=== PATIENT | female | born 2000 | race Caucasian/White ===

== ENCOUNTER 2020-03-23 09:59 | Emergency (ER) | payer OTHER ==
[2020-03-23 10:05] VITALS: TEMP 98.1
--- NOTE | 2020-03-23 10:28 | ED ---
ENT HPI - General Chief complaint: ENT Stated complaint: 14 wks preg,weak,cough,congestion,vomiting Time Seen by Provider: 03/23/20 10:06 Source: patient Mode of arrival: ambulatory Limitations: no limitations - History of Present Illness Initial comments: Patient is a 20-year-old female, , 14 week presenting to the emergency department with chief complaint of URI symptoms, nausea and vomiting. Patient reports yesterday she started to develop sinus congestion and sore throat. Patient also reports a productive cough with yellow sputum production. She does report chills but denies any fevers at home. Patient states she also had nausea with 3 episodes of nonbilious and nonbloody vomiting. States she does have decreased appetite although is able to keep fluids down. She denies any vaginal bleeding, increased urgency, frequency or dysuria. Denies hematuria, hematochezia or melena. Denies any vaginal discharge or foul smell. 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 Patient states typically her blood pressure is on the lower end. - Related Data Home Medications Medication Instructions Recorded Confirmed Acetaminophen Tab [Tylenol] 325 mg PO Q8H PRN 03/23/20 03/23/20 Yje-Tqas-Synop Acid 1 cap PO DAILY 03/23/20 03/23/20 [-U Capsule (formulary)] Allergies Allergy/AdvReac Type Severity Reaction Status Date / Time No Known Allergies Allergy Verified 03/23/20 11:12 Review of Systems ROS Statement: Those systems with pertinent positive or pertinent negative responses have been documented in the HPI. ROS Other: All systems not noted in ROS Statement are negative. Past Medical History Past Medical History: No Reported History History of Any Multi-Drug Resistant Organisms: None Reported Past Surgical History: No Surgical Hx Reported Past Psychological History: No Psychological Hx Reported Smoking Status: Never smoker Past Alcohol Use History: None Reported Past Drug Use History: None Reported General Exam Limitations: no limitations General appearance: alert, in no apparent distress Head exam: Present: atraumatic, normocephalic, normal inspection Eye exam: Present: normal appearance, PERRL, EOMI Pupils: Present: normal accommodation ENT exam: Present: normal exam, normal oropharynx, mucous membranes moist, TM's normal bilaterally, normal external ear exam Neck exam: Present: normal inspection, full ROM. Absent: tenderness Respiratory exam: Present: normal lung sounds bilaterally. Absent: respiratory distress, wheezes, rales Cardiovascular Exam: Present: regular rate, normal rhythm, normal heart sounds GI/Abdominal exam: Present: soft. Absent: distended, tenderness, guarding, rebound Extremities exam: Present: normal inspection, full ROM, normal capillary refill, other (+2 ulnar and radial pulses bilateral.). Absent: tenderness, pedal edema, joint swelling, calf tenderness Back exam: Present: normal inspection, full ROM, tenderness, CVA tenderness (L) (Mild left CVA). Absent: CVA tenderness (R) Neurological exam: Present: alert, oriented X3, normal gait Psychiatric exam: Present: normal affect, normal mood Skin exam: Present: warm, dry, intact, normal color Course Vital Signs 03/23/20 10:02 Temperature 98.1 F Pulse Rate 118 H Respiratory 16 Rate Blood Pressure 107/77 O2 Sat by Pulse 99 Oximetry Medical Decision Making - Medical Decision Making Patient is a 20-year-old female, , 14 weeks , presenting to the emergency department with URI symptoms, nausea vomiting. Physical examination is unremarkable. 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 Chest x-ray is unremarkable. CBC CMP and UA are unremarkable. She does not have any vaginal bleeding. No UTI symptoms. Patient was given IV fluids, Reglan and Benadryl. On reevaluation, patient feels much better. Her OB is . She is already taking vitamins. Strict return parameters were thoroughly discussed the patient was understanding and agreeable. Case discussed with physician. - Lab Data Result diagrams: 03/23/20 10:41 03/23/20 10:41 Lab Results 03/23/20 03/23/20 03/23/20 Range/Units 10:41 10:41 11:03 WBC 8.3 (4.0-11.0) k/uL RBC 3.87 (3.80-5.40) m/uL Hgb 11.9 (11.4-16.0) gm/dL Hct 34.4 (34.0-46.0) % MCV 89.0 (80.0-100.0) fL MCH 30.7 (25.0-35.0) pg MCHC 34.5 (31.0-37.0) g/dL RDW 12.6 (11.5-15.5) % Plt Count 212 (150-450) k/uL Neutrophils % 82 % Lymphocytes % 11 % Monocytes % 5 % Eosinophils % 1 % Basophils % 0 % Neutrophils # 6.8 (1.3-7.7) k/uL Lymphocytes # 0.9 L (1.0-4.8) k/uL Monocytes # 0.4 (0-1.0) k/uL Eosinophils # 0.1 (0-0.7) k/uL Basophils # 0.0 (0-0.2) k/uL Sodium 134 L (137-145) mmol/L Potassium 3.8 (3.5-5.1) mmol/L Chloride 104 (98-107) mmol/L Carbon Dioxide 23 (22-30) mmol/L Anion Gap 7 mmol/L BUN 4 L (7-17) mg/dL Creatinine 0.46 L (0.52-1.04) mg/dL Est GFR (CKD-EPI)AfAm >90 (>60 ml/min/1.73 sqM) Est GFR (CKD-EPI)NonAf >90 (>60 ml/min/1.73 sqM) Glucose 85 (74-99) mg/dL Calcium 9.5 (8.4-10.2) mg/dL Total Bilirubin 0.6 (0.2-1.3) mg/dL AST 22 (14-36) U/L ALT 13 (4-34) U/L Alkaline Phosphatase 56 (38-126) U/L Total Protein 6.9 (6.3-8.2) g/dL Albumin 4.1 (3.5-5.0) g/dL Urine Color Yellow Urine Appearance Cloudy H (Clear) Urine pH 6.5 (5.0-8.0) Ur Specific [place] 1.012 (1.001-1.035) Urine Protein Negative (Negative) Urine Glucose (UA) Negative (Negative) Urine Ketones Negative (Negative) Urine Blood Trace H (Negative) Urine Nitrite Negative (Negative) Urine Bilirubin Negative (Negative) Urine Urobilinogen <2.0 (<2.0) mg/dL Ur Leukocyte Esterase Negative (Negative) Urine RBC 2 (0-5) /hpf Urine WBC 1 (0-5) /hpf Ur Squamous Epith Cells 7 H (0-4) /hpf Urine Bacteria Rare H (None) /hpf Urine Mucus Occasional H (None) /hpf Disposition Clinical Impression: Upper respiratory infection, Nausea & vomiting Disposition: HOME SELF-CARE Condition: Stable Instructions (If sedation given, give patient instructions): Upper Respiratory Infection (DC) Additional Instructions: Follow-up with your primary care physician. Drink plenty of fluids. Return to emergency department if symptoms worsen. Is patient prescribed a controlled substance at d/c from ED?: No Referrals: None,Stated [Primary Care Provider] - 1-2 days Time of Disposition: 11:53
[2020-03-23] MEDS ORDERED: METOCLOPRAMIDE 5 MG/ML 2 ML VIAL IVP STA (10:36)
[2020-03-23] MEDS ORDERED: diphenhydrAMINE 50 MG/ML 1 ML VIAL IVP STA (10:36)
[2020-03-23] MEDS ORDERED: SODIUM CHLORIDE 0.9% 1,000 ML IV STA (10:36)
[2020-03-23 11:08] LABS: Basophils % (A) 0 %; Eosinophils # (A) 0.1 k/uL (0-0.7); Eosinophils % (A) 1 %; HCT 34.4 % (34.0-46.0); HGB 11.9 gm/dL (11.4-16.0); Lymphocytes # (A) 0.9 k/uL (1.0-4.8); Lymphocytes % (A) 11 %; MCH 30.7 pg (25.0-35.0); MCHC 34.5 g/dL (31.0-37.0); Mean Platelet Volume 7.8; Monocytes # (A) 0.4 k/uL (0-1.0); Monocytes % (A) 5 %; Neutrophils # (A) 6.8 k/uL (1.3-7.7); Neutrophils % (A) 82 %; Platelet Count 212 k/uL (150-450); RBC 3.87 m/uL (3.80-5.40); RDW 12.6 % (11.5-15.5); WBC 8.3 k/uL (4.0-11.0)
[2020-03-23 11:17] LABS: ALT 13 U/L (4-34); AST 22 U/L (14-36); African American GFR (CKD) >90 (>60 ml/min/1.73 sqM); Albumin 4.1 g/dL (3.5-5.0); Alkaline Phosphatase 56 U/L (38-126); Anion Gap 7 mmol/L; Blood Urea Nitrogen 4 mg/dL (7-17); Calcium 9.5 mg/dL (8.4-10.2); Carbon Dioxide 23 mmol/L (22-30); Chloride 104 mmol/L (98-107); Glucose 85 mg/dL (74-99); Non-African American GFR(CKD) >90 (>60 ml/min/1.73 sqM); Potassium 3.8 mmol/L (3.5-5.1); Sodium 134 mmol/L (137-145); Total Bilirubin 0.6 mg/dL (0.2-1.3); Total Protein 6.9 g/dL (6.3-8.2)
[2020-03-23 11:28] LABS: Appearance,Urine Cloudy (Clear); Bacteria,Urine Rare /hpf; Bilirubin,Urine Negative (Negative); Blood,Urine Trace (Negative); Color,Urine Yellow; Glucose,Urine (UA) Negative (Negative); Ketones,Urine Negative (Negative); Leukocyte Esterase,Urine Negative (Negative); Mucus,Urine Occasional /hpf; Nitrite,Urine Negative (Negative); PH, Urine 6.5 (5.0-8.0); Protein,Urine Negative (Negative); RBC,Urine 2 /hpf (0-5); Specific Gravity,Urine 1.012 (1.001-1.035); Squamous Epithelial Cell,Urine 7 /hpf (0-4); Urobilinogen,Urine <2.0 mg/dL (<2.0); WBC,Urine 1 /hpf (0-5)
--- NOTE | 2020-03-23 11:28 | XR ---
EXAMINATION TYPE: XR chest 2V DATE OF EXAM: 03/23/2020 COMPARISON: NONE TECHNIQUE: PA and lateral views submitted. HISTORY: Cough FINDINGS: The lungs are clear and there is no pneumothorax, pleural effusion, or focal pneumonia. No overt fa ilure. Heart size normal. IMPRESSION: 1. No acute process.
[2020-03-23 11:43] VITALS: PULSE 98; RESP 18
[2020-03-23 11:46] VITALS: BP 107/64
== END 2020-03-23 12:26 | disposition home or self-care (01) ==
LOC: EC 09:59
DX: O99.512 Diseases of the respiratory system complicating pregnancy, second trimester (principal); J06.9 Acute upper respiratory infection, unspecified; O21.9 Vomiting of pregnancy, unspecified; Z3A.14 14 weeks gestation of pregnancy; Z79.899 Other long term (current) drug therapy
CPT/HCPCS: 96374; 96375; 96361; 99284; 36415; 80053; 85025; 81001; 71046; J1200; J2765

== ENCOUNTER 2020-07-05 13:27 | Outpatient (CLI) | payer OTHER ==
[2020-07-05 15:30] VITALS: BP 116/65; PULSE 99; RESP 16; TEMP 97.9
--- NOTE | 2020-08-03 15:29 | P.MSEPDOC ---
Presenting Problems - Arrival Data Date of Arrival on Unit: 07/05/20 Time of Arrival on Unit: 13:35 Mode of Transport: Ambulatory - Complaint OB-Reason for Admission/Chief Complaint: Decreased Movement Medical History - Information : 1 Para: 0 Term: 0 : 0 Abortions: Spontaneous or Elective: 0 Number of Living Children: 0 - Gestational Age Gestational Age by RYAN (wks/days): 29 Weeks and 0 Days Review of Systems - Review of Systems Constitutional: No problems Breast: No problems ENT: No problems Cardiovascular: No problems Respiratory: No problems Gastrointestinal: No problems Genitourinary: No problems Musculoskeletal: No problems Neurological: No problems Skin: No problems Vital Signs - Temperature Temperature: 97.9 F Temperature Source: Temporal Artery Scan - Pulse Pulse Oximetery Pulse Rate: 99 Pulse Assessment Method: Pulse Oximetry - Respirations Respiratory Rate: 16 O2 Sat by Pulse Oximetry: 99 - Blood Pressure Right Arm Sitting Blood Pressure: 116/65 Blood Pressure Mean: 82 Blood Pressure Source: Automatic Cuff Medical Screen Scoring (Pre) - Cervical Exam Dilation: Exam Deferred Effacement: Exam Deferred Membranes: Intact - Uterine Contractions Frequency: N/A Duration: N/A Intensity: N/A - Maternal Vital Signs Maternal Temperature: N/A Maternal Blood Pressure: N/A Signs of Preeclampsia: N/A Maternal Respirations: N/A - Maternal Trauma Maternal Trauma: N/A - Assessment - Baby A Baseline FHR: 130 Heart Rate - NICHD Category: Category I (Normal) = 0 NST: Reactive Position: N/A Station: N/A - Total Score - Baby A Total Score - Baby A: 0 - Total Score - Baby B Total Score - Baby B: 0 - Total Score - Baby C Total Score - Baby C: 0 - Level of Risk - Baby A Level of Risk - Baby A: Low (0-5) - Level of Risk - Baby B Level of Risk - Baby B: Low (0-5) - Level of Risk - Baby C Level of Risk - Baby C: Low (0-5) Physician Notification (Pre) - Physician Notified Physician Notified Date: 07/05/20 Physician Notified Time: 14:30 New Order Received: Yes Disposition - Disposition OB Disposition: Discharge to home, Written follow up instructions reviewed Discharge Date: 07/05/20 Discharge Time: 14:35 I agree with the RN Medical Screening Exam: Yes Physician's MSE Comment: Patient was not seen or examined by myself Case reviewed; plan agreed upon as documented in EMR&OBIX.: Yes Diagnosis: DECREASED MOVEMENTS, SECOND TRIMESTER, FETUS 1
== END 2020-07-05 14:35 | disposition home or self-care (01) ==
LOC: FBPOP 13:27
PROVIDERS: ATTEND Obstetrics & Gynecology Obstetrics
DX: O36.8121 Decreased fetal movements, second trimester, fetus 1 (principal); Z3A.29 29 weeks gestation of pregnancy
CPT/HCPCS: 59025; G0463; 99213

== ENCOUNTER 2020-08-29 09:25 | Emergency (ER) | payer OTHER ==
[2020-08-29 09:32] VITALS: RESP 18
[2020-08-29 11:20] VITALS: BP 118/74; PULSE 99; TEMP 98.1
--- NOTE | 2020-08-29 11:31 | ED ---
General Adult HPI - General Chief complaint: Upper Respiratory Infection Stated complaint: SOB/Vomiting/Nasal Congestion/37 wks preg Time Seen by Provider: 08/29/20 09:57 Source: patient, RN notes reviewed Mode of arrival: ambulatory Limitations: no limitations - History of Present Illness Initial comments: 20-year-old female presents emergency Department chief complaint of possible Covid. Patient states that she's had some cough congestion patient denies any known fevers chills. Patient states her 7 weeks states that she's had some nausea vomiting no abdominal complaints. Patient offers no other complaints. - Related Data Home Medications Medication Instructions Recorded Confirmed No Known Home Medications 08/29/20 08/29/20 Allergies Allergy/AdvReac Type Severity Reaction Status Date / Time No Known Allergies Allergy Verified 08/29/20 10:23 Review of Systems ROS Statement: Those systems with pertinent positive or pertinent negative responses have been documented in the HPI. ROS Other: All systems not noted in ROS Statement are negative. Past Medical History Past Medical History: No Reported History History of Any Multi-Drug Resistant Organisms: None Reported Past Surgical History: Adenoidectomy, Tonsillectomy Additional Past Surgical History / Comment(s): shoulder Past Psychological History: No Psychological Hx Reported Smoking Status: Never smoker Past Alcohol Use History: None Reported Past Drug Use History: None Reported General Exam General appearance: alert, in no apparent distress Head exam: Present: atraumatic, normocephalic, normal inspection Eye exam: Present: normal appearance, PERRL, EOMI. Absent: scleral icterus, conjunctival injection, periorbital swelling ENT exam: Present: normal exam, mucous membranes moist Neck exam: Present: normal inspection, full ROM. Absent: tenderness, meningismus, lymphadenopathy Respiratory exam: Present: normal lung sounds bilaterally. Absent: respiratory distress, wheezes, rales, rhonchi, stridor Cardiovascular Exam: Present: regular rate, normal rhythm, normal heart sounds. Absent: systolic murmur, diastolic murmur, rubs, gallop, clicks Course Vital Signs 08/29/20 08/29/20 09:29 11:19 Temperature 98.5 F 98.1 F Pulse Rate 108 H 99 Respiratory 18 18 Rate Blood Pressure 124/81 118/74 O2 Sat by Pulse 98 98 Oximetry Medical Decision Making - Medical Decision Making Patient has a negative covid test. Patient discharged in stable condition return parameters were discussed. - Lab Data Lab Results 08/29/20 Range/Units 10:29 Coronavirus (PCR) Not Detected (Not Detectd) Disposition Clinical Impression: Acute upper respiratory infection Disposition: HOME SELF-CARE Condition: Stable Instructions (If sedation given, give patient instructions): Upper Respiratory Infection (ED) Additional Instructions: Please return to the Emergency Department if symptoms worsen or any other concerns. Is patient prescribed a controlled substance at d/c from ED?: No Referrals: None,Stated [Primary Care Provider] - 1-2 days Time of Disposition: 11:31
== END 2020-08-29 11:39 | disposition home or self-care (01) ==
LOC: EC 09:25
DX: O99.511 Diseases of the respiratory system complicating pregnancy, first trimester (principal); J06.9 Acute upper respiratory infection, unspecified; Z20.822 Contact with and (suspected) exposure to COVID-19; Z3A.01 Less than 8 weeks gestation of pregnancy
CPT/HCPCS: 87635; 99283

== ENCOUNTER 2020-09-07 13:12 | Outpatient (CLI) | payer OTHER ==
[2020-09-07 14:22] VITALS: BP 130/73; PULSE 108; RESP 18; TEMP 98.1
--- NOTE | 2020-09-21 13:05 | P.MSEPDOC ---
Presenting Problems - Arrival Data Date of Arrival on Unit: 09/07/20 Time of Arrival on Unit: 13:12 Mode of Transport: Ambulatory - Complaint OB-Reason for Admission/Chief Complaint: Rule Out SROM Comment: pt presents to triage for possible SROM Medical History - Information : 1 Para: 0 Term: 0 : 0 Abortions: Spontaneous or Elective: 0 Number of Living Children: 0 - Gestational Age Gestational Age by RYAN (wks/days): 38 Weeks and 1 Days Review of Systems - Review of Systems Constitutional: No problems Breast: No problems ENT: No problems Cardiovascular: No problems Respiratory: No problems Gastrointestinal: No problems Genitourinary: No problems Musculoskeletal: No problems Neurological: No problems Skin: No problems Vital Signs - Temperature Temperature: 98.1 F Temperature Source: Temporal Artery Scan - Pulse Right Brachial Pulse Rate: 108 Pulse Assessment Method: Automatic Cuff - Respirations Respiratory Rate: 18 Oxygen Delivery Method: Room Air - Blood Pressure Right Arm Blood Pressure: 130/73 Blood Pressure Mean: 92 Blood Pressure Source: Automatic Cuff Medical Screen Scoring (Pre) - Cervical Exam Dilation: 1-3 cm = 1 Effacement: Exam Deferred Membranes: Intact - Uterine Contractions Frequency: N/A Duration: N/A Intensity: N/A - Maternal Vital Signs Maternal Temperature: N/A Maternal Blood Pressure: N/A Signs of Preeclampsia: N/A Maternal Respirations: N/A - Maternal Trauma Maternal Trauma: N/A - Assessment - Baby A Baseline FHR: 130 Heart Rate - NICHD Category: Category I (Normal) = 0 NST: Reactive Position: N/A Station: N/A - Total Score - Baby A Total Score - Baby A: 1 - Total Score - Baby B Total Score - Baby B: 1 - Total Score - Baby C Total Score - Baby C: 1 - Level of Risk - Baby A Level of Risk - Baby A: Low (0-5) - Level of Risk - Baby B Level of Risk - Baby B: Low (0-5) - Level of Risk - Baby C Level of Risk - Baby C: Low (0-5) Physician Notification (Pre) - Physician Notified Physician Notified Date: 09/07/20 Physician Notified Time: 14:00 New Order Received: Yes Disposition - Disposition OB Disposition: Triage, Discharge to home, Written follow up instructions reviewed Discharge Date: 09/07/20 Discharge Time: 14:10 I agree with the RN Medical Screening Exam: Yes Case reviewed; plan agreed upon as documented in EMR&OBIX.: Yes Diagnosis: RELATED CONDITIONS, UNSPECIFIED, THIRD TRIMESTER
== END 2020-09-07 14:10 | disposition home or self-care (01) ==
LOC: FBPOP 13:12
PROVIDERS: ATTEND Obstetrics & Gynecology Obstetrics
DX: O26.893 Other specified pregnancy related conditions, third trimester (principal); Z3A.38 38 weeks gestation of pregnancy
CPT/HCPCS: 59025; 84112; G0463; 99213

== ENCOUNTER 2020-09-10 09:58 | Inpatient (IN) | payer OTHER ==
[2020-09-10] MEDS: LACTATED RINGERS 1,000 ML IV SCH ×2 (12:20→15:54)
[2020-09-10] MEDS ORDERED: TERBUTALINE 1 MG/ML VIAL SQ PRN (12:25)
[2020-09-10] MEDS ORDERED: LIDOCAINE 0.5% (PF) 5 MG/ML (50 ML SDV) SQ PRN (12:25)
[2020-09-10] MEDS ORDERED: CARBOPROST TROMETHAMINE 250 MCG/ML 1 ML AMP IM PRN (12:25)
[2020-09-10] MEDS ORDERED: METHYLERGONOVINE 0.2 MG/ML 1 ML AMP IM PRN (12:25)
[2020-09-10] MEDS ORDERED: OXYTOCIN 10 UNIT/ML 1 ML VIAL IM PRN (12:25)
[2020-09-10] MEDS ORDERED: OXYTOCIN 30 UNITS/500 ML NS 30 UNIT in SALINE 1 500ML.BAG IV SCH ×2 (12:30→17:30)
[2020-09-10 12:44] LABS: Basophils % (A) 0 %; Eosinophils # (A) 0.2 k/uL (0-0.7); Eosinophils % (A) 1 %; HCT 35.1 % (34.0-46.0); HGB 12.2 gm/dL (11.4-16.0); Lymphocytes # (A) 1.9 k/uL (1.0-4.8); Lymphocytes % (A) 12 %; MCH 30.6 pg (25.0-35.0); MCHC 34.8 g/dL (31.0-37.0); MCV 88.2 fL (80.0-100.0); Mean Platelet Volume 9.3; Monocytes # (A) 0.5 k/uL (0-1.0); Monocytes % (A) 3 %; Neutrophils # (A) 12.9 k/uL (1.3-7.7); Neutrophils % (A) 82 %; Platelet Count 248 k/uL (150-450); RBC 3.98 m/uL (3.80-5.40); RDW 13.4 % (11.5-15.5); WBC 15.6 k/uL (4.0-11.0)
--- NOTE | 2020-09-10 13:06 | P.HPOB ---
History of Present Illness H&P Date: 09/10/20 Chief Complaint: IUP at 38 and 4, active labor This is a 20-year-old 1 para 0 at 38-4/7 weeks that presented to labor and delivery for complaints of regular painful contractions starting early this morning. Patient denies vaginal bleeding or loss of fluid. Patient has been receiving routine care which has been essentially uncomplicated, she was diagnosed with chlamydia and treated on 03/19. Negative test of cure on 06/28. Patient does note good movement today. On blood work she has a blood type of O-, rubella status is immune, RPR is nonreactive, hepatitis B surface antigen is negative, HIV is negative. Group beta strep culture was negative on 08/22. Review of Systems Constitutional: Denies chills, Denies fatigue, Denies fever Ears, nose, mouth and throat: Denies headache Cardiovascular: Reports leg edema Gastrointestinal: Reports diarrhea, Denies constipation, Denies nausea, Denies vomiting Genitourinary: Reports Past Medical History Past Medical History: No Reported History Additional Past Medical History / Comment(s): hypoglycemia History of Any Multi-Drug Resistant Organisms: None Reported Past Surgical History: Adenoidectomy, Tonsillectomy Additional Past Surgical History / Comment(s): shoulder Past Anesthesia/Blood Transfusion Reactions: No Reported Reaction Past Psychological History: ADD/ADHD Smoking Status: Former smoker Past Alcohol Use History: None Reported Past Drug Use History: None Reported - Past Family History Mother Family Medical History: Cancer, Hypertension Additional Family Medical History / Comment(s): breast CA Medications and Allergies Home Medications Medication Instructions Recorded Confirmed Type Pnv No.95/Ferrous Fum/Folic AC 1 tab PO DAILY 09/07/20 09/10/20 History [ Multivitamin Tablet] Allergies Allergy/AdvReac Type Severity Reaction Status Date / Time No Known Allergies Allergy Verified 09/10/20 10:10 Exam Osteopathic Statement: *. No significant issues noted on an osteopathic structural exam other than those noted in the History and Physical/Consult. Vital Signs Temp Pulse Resp BP 09/10/20 12:11 97.4 F L 99 17 129/82 Intake and Output 09/09/20 09/10/20 09/10/20 22:59 06:59 14:59 Other: Weight 79.379 kg Targeted physical exam is performed and state in general this a well-nourished well-developed female in no acute distress, breathing is nonlabored, heart has a regular rate and rhythm, abdomen is gravid and appropriate for gestational age, on cervical exam she is 4/80/-2 station bulging bag of water is appreciated, amniotomy is performed and clear fluid is obtained. Results Result Diagrams: 09/10/20 12:26 Abnormal Lab Results - Last 24 Hours (Table) 09/10/20 Range/Units 12:26 WBC 15.6 H (4.0-11.0) k/uL Neutrophils # 12.9 H (1.3-7.7) k/uL Assessment and Plan (1) Term Current Visit: Yes Status: Acute Code(s): Z34.90 - ENCNTR FOR SUPRVSN OF NORMAL , UNSP, UNSP TRIMESTER SNOMED Code(s): 78132424 (2) Active labor Current Visit: Yes Status: Acute Code(s): YQX9040 - SNOMED Code(s): 645342780 Plan: This 20-year-old 1 para 0 at 38-4/7 weeks is admitted to labor and delivery for active labor. Patient underwent amniotomy after admission and clear fluid was obtained. Options for analgesia are discussed with the patient including Stadol and epidural. Patient request epidural placement, when appropriate. Anticipate spontaneous vaginal delivery later today.
[2020-09-10] MEDS ORDERED: BUTORPHANOL 1 MG/ML 1 ML VIAL IV PRN (14:15)
[2020-09-10] MEDS ORDERED: SODIUM CHLORIDE 0.9% 100 ML BAG ONE (15:32)
[2020-09-10] MEDS ORDERED: fentaNYL (PF) 50 MCG/ML 5 ML AMP ONE (15:32)
[2020-09-10] MEDS ORDERED: ROPIVACAINE 5MG/ML 20ML VIAL ONE (15:32)
[2020-09-10] MEDS ORDERED: diphenhydrAMINE 50 MG CAP PO PRN (17:29)
[2020-09-10] MEDS ORDERED: diphenhydrAMINE 25 MG CAP PO PRN (17:29)
[2020-09-10] MEDS ORDERED: SIMETHICONE 80 MG CHEWABLE PO PRN (17:29)
[2020-09-10] MEDS ORDERED: LANOLIN CREAM 5 GM TUBE TOPICAL PRN (17:29)
[2020-09-10] MEDS ORDERED: ACETAMINOPHEN TAB 325 MG TAB PO PRN (17:29)
[2020-09-10] MEDS ORDERED: HYDROCORTISONE 2.5% RECTAL CREAM 30 GM TUBE RECTAL PRN (17:29)
[2020-09-10] MEDS ORDERED: diphenhydrAMINE 50 MG/ML 1 ML VIAL IVP PRN ×2 (17:29)
[2020-09-10] MEDS ORDERED: ZOLPIDEM 5 MG TAB PO PRN (17:29)
[2020-09-10] MEDS ORDERED: BENZOCAINE/MENTHOL SPRAY 1 GM/SPRAY AEROSOL TOPICAL PRN (17:29)
--- NOTE | 2020-09-10 17:29 | P.PROBDLV ---
Vaginal Delivery Note - . Vaginal Delivery Note: This is a 20-year-old 1 para 0 that presented to labor and delivery at 38-4/7 weeks with complaints of regular painful contractions. Patient was admitted to labor and delivery and amniotomy was performed. Uterus was noted to be 4 cm at that time. Patient progressed in labor eventually becoming uncomfortable and requesting epidural placement. Epidural was placed without difficulty by the anesthesia department. Patient progressed to complete began pushing and had a normal spontaneous vaginal delivery of a viable female infant at 1705, weight of 6 lbs. 6 oz. after a two-minute delayed the umbilical cord was doubly clamped and cut and was handed to the maternal abdomen. Spontaneous cry was noted at . The placenta was then delivered spontaneously intact with a three-vessel cord being noted. On inspection the patient's vaginal vault a right labial laceration was noted through the hymenal ring, this was repaired with 3-0 Rapide in the usual fashion. The bladder was drained for approximately 200 mL of clear yellow urine. The uterus was noted to be firm and below the umbilicus, estimated blood loss 200 mL. Patient and infant tolerated delivery well and are resting complete. All counts were noted to be correct 2 at the end of the delivery.
[2020-09-10] MEDS: IBUPROFEN 600 MG TAB PO SCH (18:01)
[2020-09-10] MEDS: SENNOSIDES-DOCUSATE SODIUM 1 EACH TAB PO SCH (20:45)
[2020-09-11] MEDS: IBUPROFEN 600 MG TAB PO SCH ×4 (01:11→18:25)
[2020-09-11] MEDS: SENNOSIDES-DOCUSATE SODIUM 1 EACH TAB PO SCH (07:32)
--- NOTE | 2020-09-11 08:42 | P.DS ---
Providers Date of admission: 09/10/20 12:05 Expected date of discharge: 09/11/20 Attending physician: Светлана Gore Primary care physician: Stated None - Discharge Diagnosis(es) (1) Term Current Visit: Yes Status: Acute (2) Active labor Current Visit: Yes Status: Acute (3) Status post vaginal delivery Current Visit: Yes Status: Acute Hospital Course: This is a 21-year-old 1 now para 1 status post normal spontaneous vaginal delivery. Patient presented yesterday with complaints of regular contractions. Patient was noted to make cervical change and was admitted to labor and delivery. Patient underwent amniotomy clear fluid was obtained. Patient became uncomfortable and requested epidural placement. Epidural was placed without difficulty by the anesthesia department. Patient progressed to complete began pushing and had a normal spontaneous vaginal delivery of a viable female infant at 1705, weight of 6 lbs. 6 oz. and Apgars of 9 and 10 at one and 5 minutes respectively. Patient did sustain a labial laceration during delivery this was repaired in the usual fashion with 3-0 Rapide. Patient has done well . On this day #1 she is ambulating and voiding without difficulty. She is tolerating a regular diet without nausea or vomiting. She states her pain is well-controlled and she would like discharge home at 24 hours if possible. Patient Condition at Discharge: Good Plan - Discharge Summary New Discharge Prescriptions: No Action Pnv No.95/Ferrous Fum/Folic AC [ Multivitamin Tablet] 1 tab PO DAILY Discharge Medication List Pnv No.95/Ferrous Fum/Folic AC [ Multivitamin Tablet] 1 tab PO DAILY 09/07/20 [History] Follow up Appointment(s)/Referral(s): Светлана Gore DO [Doctor of Osteopathic Medicine] - 4 Weeks Patient Instructions/Handouts: Vaginal Delivery (GEN), Vaginal Delivery (DC) Discharge Disposition: HOME SELF-CARE
[2020-09-11] MEDS ORDERED: PRENATAL VIT-IRON-FOLIC ACID 1 EACH CAP PO SCH (09:00)
[2020-09-11 11:32] VITALS: RESP 16
[2020-09-11 16:51] VITALS: BP 123/75; PULSE 85; TEMP 97.9
== END 2020-09-11 18:10 | disposition home or self-care (01) | DRG 807 ==
LOC: FBPOP 09:58 → 4FBP 12:05
PROVIDERS: ADMIT Obstetrics & Gynecology Obstetrics; ATTEND Obstetrics & Gynecology Obstetrics
PROC: 0HQ9XZZ Repair Perineum Skin, External Approach (ICD-10-PCS; principal; 2020-09-10)
PROC: 10907ZC Drainage of Amniotic Fluid, Therapeutic from Products of Conception, Via Natural or Artificial Opening (ICD-10-PCS; principal; 2020-09-10)
PROC: 00HU33Z Insertion of Infusion Device into Spinal Canal, Percutaneous Approach (ICD-10-PCS; principal; 2020-09-10)
PROC: 3E0R3NZ Introduction of Analgesics, Hypnotics, Sedatives into Spinal Canal, Percutaneous Approach (ICD-10-PCS; principal; 2020-09-10)
PROC: 10E0XZZ Delivery of Products of Conception, External Approach (ICD-10-PCS; principal; 2020-09-10)
DX: O70.0 First degree perineal laceration during delivery (principal); Z37.0 Single live birth; Z3A.38 38 weeks gestation of pregnancy; O99.344 Other mental disorders complicating childbirth; F90.9 Attention-deficit hyperactivity disorder, unspecified type; Z80.3 Family history of malignant neoplasm of breast; Z82.49 Family history of ischemic heart disease and other diseases of the circulatory system; Z87.891 Personal history of nicotine dependence; Z90.89 Acquired absence of other organs
CPT/HCPCS: 59025; 85025; 86850; 86900; 86901; 99213

== ENCOUNTER → 2022-10-29 | Outpatient (CLI) | payer OTHER ==
--- NOTE | 2022-10-29 15:33 | US ---
EXAMINATION TYPE: Transabdominal DATE OF EXAM: 10/29/2022 3:10 PM COMPARISON: NONE CLINICAL INDICATION: Female, 22 years old with history of Z36.89 ENCOUNTER FOR OTHER SPECIFIED ANTENA KWAKU SCR; EXAM PERFORMED: Transabdominal (TA) EXAM MEASUREMENTS: GESTATIONAL AGE / DATING Dates by LMP: (12 weeks/1 days) EDC: 05/12/2023 Dates by Current Scan for: (12 weeks/6 days) EDC: 05/17/2023 MATERNAL ANATOMY Uterus: 9.7x8.3x10cm Right Ovary: 3.7x2.8x2.6cm Left Ovary: 2.6x2.6x1.9cm Post CDS / Adnexa: negative Presence of free fluid: no Presence of corpus luteal cyst: no, small cystic area on rt ovary Presence of subchorionic bleed: no GESTATION / SURVEY CRL: 6.44cm (12 weeks/6 days) Yolk Sac (normal less than 6mm): 5.6mm Heart Rate: 155 bpm Rhythm: Normal IUP: Viable IUP Date of LMP: 08/05/2022 Beta HcG (if available): Not available at this time IMPRESSION: Single live intrauterine gestation ultrasound age 12 weeks 6 days.
== END | disposition home or self-care (01) ==
LOC: RADUSWWP 14:09
PROVIDERS: ATTEND Obstetrics & Gynecology
DX: Z36.89 Encounter for other specified antenatal screening (principal); Z3A.12 12 weeks gestation of pregnancy
CPT/HCPCS: 76801

== ENCOUNTER → 2022-12-17 | Outpatient (CLI) | payer OTHER ==
--- NOTE | 2022-12-17 14:17 | US ---
EXAMINATION TYPE: US OB anatomy transabd DATE OF EXAM: 12/17/2022 COMPARISON: 10/29/2022 CLINICAL INDICATION: Female, 22 years old with history of O36.62X0 MATERNAL CARE FOR EXCESS EFRAIN WT, SE; anatomy TECHNIQUE: Transabdominal (TA) EXAM MEASUREMENTS: GESTATIONAL AGE / DATING Dates by LMP: 05/12/2023 (19 weeks/1 days) EDC: 05/12/2023 Dates by First Scan: ( weeks/ days) EDC: Dates by Current Scan: (19 weeks/4 days) EDC: 05/09/2023 Beta HCG (if available): Not available at this time SURVEY IUP: Single PLACENTA: Posterior PREVIA: Low Lying MIKAEL: 10.7 cm Normal CERVICAL LENGTH (transabdominal: norm > 3.0cm): 4.8 cm BIOMETRY PRESENTATION: Breech LIE: Longitudinal BPD: 4.6 cm 20 weeks / 0 days HC: 16.6 cm 19 weeks / 2 days AC: 14.1 cm 19 weeks / 4 days FL: 3.0 cm 19 weeks / 2 days ESTIMATED WEIGHT IN GRAMS: 288 grams ESTIMATED WEIGHT IN LBS/OZ: 0 lbs. 10 oz. WEIGHT PERCENTAGE BASED ON ESTABLISHED DATES: 59% HC/AC: 1.17 Normal FL/AC: 21% Normal HEART RATE: 160 bpm RHYTHM: Normal ANATOMY SEEN (within normal limits): * Lateral Vent (< 1 cm) 0.63cm * Cisterna Magna (< 1.1 cm) 0.31cm * Nuchal Fold (< 0.6 cm) 0.24cm * Cerebellum (varies with age) 1.87 Choroid Plexus (bilateral) Midline Falx Cavus Septi Pellucidi Four Chamber Heart Outflow tracts: LVOT/RVOT Stomach Situs Nose / Lips Diaphragm Bladder Cord Insert Three Vessel Cord Arms (bilateral) Legs (bilateral) ANATOMY SEEN (does not appear within normal limits): ANATOMY NOT SEEN: Kidneys (bilateral) Longitudinal Spine Transverse Spine Unable to obtain some views due to position. Pt. Scheduled for call back imaging IMPRESSION: Anatomy scan with single live intrauterine gestation in breech presentation with ultrasound age 19 we eks 4 days. Patient to return for additional and anatomy scans.
== END | disposition home or self-care (01) ==
LOC: RADUSWWP 12:18
PROVIDERS: ATTEND Obstetrics & Gynecology
DX: O36.62X0 Maternal care for excessive fetal growth, second trimester, not applicable or unspecified (principal); Z3A.19 19 weeks gestation of pregnancy
CPT/HCPCS: 76811

== ENCOUNTER → 2023-01-14 | Outpatient (CLI) | payer OTHER ==
--- NOTE | 2023-01-14 16:38 | US ---
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 Normal limited anatomy as described above.
== END | disposition home or self-care (01) ==
LOC: RADUSWWP 15:38
PROVIDERS: ATTEND Obstetrics & Gynecology
DX: Z53.9 Procedure and treatment not carried out, unspecified reason (principal)

== ENCOUNTER → 2023-02-17 | Outpatient (CLI) | payer OTHER ==
--- NOTE | 2023-02-17 21:10 | US ---
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 no bleeding TECHNIQUE: OBTA GESTATIONAL AGE / DATING Physician Established: (28 weeks/0 days) EDC: 05/12/2023 Dates by LMP: (28 weeks/0 days) EDC: 05/12/2023 Dates by First Scan: (28 weeks/3 days) EDC: 05/09/2023 Dates by Current Scan: (30 weeks/0 days) (1 weeks 4 days more growth than expected from the 12/17/2022 ultrasound) EDC: 04/28/2023 SURVEY IUP: Single PLACENTA: Posterior-fundal PREVIA: No Previa MIKAEL: 12.8 cm Normal CERVICAL LENGTH (transabdominal: norm > 3.0cm): 3.7 cm BIOMETRY PRESENTATION: Vertex LIE: Longitudinal BPD: 7.5 cm 30 weeks / 1 days HC: 27.9 cm 30 weeks / 5 days AC: 24.6 cm 28 weeks / 6 days FL: 5.7 cm 30 weeks / 0 days ESTIMATED WEIGHT IN GRAMS: 1391 grams ESTIMATED WEIGHT IN LBS/OZ: 3 lbs. 0 oz. WEIGHT PERCENTAGE BASED ON ESTABLISHED DATES: 88% versus 59th percentile on the 12/17/2022 scan HC/AC: 1.1 Normal FL/AC: 23 Normal HEART RATE: 153 bpm RHYTHM: Normal IMPRESSION: 1. Single live intrauterine with estimated gestational age of 28 weeks 0 days by LMP. [facility] ultrasound biometry is becoming larger now 88th percentile versus 59th percentile, previously. Myra suring at 30 weeks 0 days by current ultrasound biometry. 2. Consider follow-up to exclude early LGA. 3. Posterior fundal placenta without evidence for placenta previa.
== END | disposition home or self-care (01) ==
LOC: RADUSWWP 12:21
PROVIDERS: ATTEND Obstetrics & Gynecology
DX: O43.103 Malformation of placenta, unspecified, third trimester (principal); Z3A.28 28 weeks gestation of pregnancy
CPT/HCPCS: 76805

== ENCOUNTER → 2023-04-14 | Outpatient (CLI) | payer OTHER ==
--- NOTE | 2023-04-14 14:03 | US ---
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 TECHNIQUE: Transabdominal (TA) GESTATIONAL AGE / DATING Physician Established: (36 weeks/0 days) EDC: 05/12/2023 Dates by Current Scan: (36 weeks/4 days) EDC: 05/08/2023 Beta HCG (if available): Not available at this time SURVEY IUP: Single PLACENTA: Posterior PREVIA: No Previa MIKAEL: 21.2 cm Polyhydramnios CERVICAL LENGTH (transabdominal: norm > 3.0cm): 2.9 cm BIOMETRY PRESENTATION: Vertex BPD: 8.8 cm 35 weeks / 5 days HC: 33.0 cm 37 weeks / 5 days AC: 32.7 cm 36 weeks / 5 days FL: 7.0 cm 35 weeks / 6 days ESTIMATED WEIGHT IN GRAMS: 2933 grams ESTIMATED WEIGHT IN LBS/OZ: 6 lbs. 7 oz. WEIGHT PERCENTAGE BASED ON ESTABLISHED DATES: 63% HC/AC: 1.0 Normal FL/AC: 21% Normal HEART RATE: 133 bpm RHYTHM: Normal Live IUP measuring 36 weeks 4 days. Polyhydramnios. IMPRESSION: 1. Single live intrauterine gestation with estimated gestational age of 36 weeks 4 days and estimated due date of 05/08/2023. 2. Polyhydramnios. 3. Slightly decreased cervical length measuring 2.9 cm.
== END | disposition home or self-care (01) ==
LOC: RADUSWWP 12:25
PROVIDERS: ATTEND Obstetrics & Gynecology
DX: O43.109 Malformation of placenta, unspecified, unspecified trimester (principal); O40.3XX0 Polyhydramnios, third trimester, not applicable or unspecified; Z3A.36 36 weeks gestation of pregnancy
CPT/HCPCS: 76805

== ENCOUNTER 2023-04-16 07:18 | Inpatient (IN) | payer OTHER ==
[2023-04-16] MEDS: LACTATED RINGERS 1,000 ML IV SCH ×4 (09:20→23:58)
[2023-04-16] MEDS ORDERED: METHYLERGONOVINE 0.2 MG/ML 1 ML AMP IM PRN (10:27)
[2023-04-16] MEDS ORDERED: miSOPROStoL 200 MCG TAB PO PRN (10:27)
[2023-04-16] MEDS ORDERED: CARBOPROST TROMETHAMINE 250 MCG/ML 1 ML AMP IM PRN (10:27)
[2023-04-16] MEDS ORDERED: OXYTOCIN 10 UNIT/ML 1 ML VIAL IM PRN (10:27)
[2023-04-16] MEDS ORDERED: LIDOCAINE 0.5% (PF) 5 MG/ML (50 ML SDV) SQ PRN (10:27)
[2023-04-16] MEDS ORDERED: TERBUTALINE 1 MG/ML VIAL SQ PRN (10:27)
[2023-04-16] MEDS ORDERED: TRANEXAMIC 1,000 MG/100ML-NACL 1,000 MG in EMPTY BAG 1 BAG IV PRN (10:27)
[2023-04-16] MEDS ORDERED: SODIUM CHLORIDE 0.9% 250 ML BAG ONE (10:28)
[2023-04-16] MEDS ORDERED: ROPIVACAINE 5 MG/ML 30 ML VIAL ONE (10:28)
[2023-04-16] MEDS ORDERED: fentaNYL (PF) 50 MCG/ML 5 ML AMP ONE (10:28)
[2023-04-16] MEDS ORDERED: OXYTOCIN 30 UNITS/500 ML NS 30 UNIT in SALINE 1 500ML.BAG IV SCH ×2 (10:30→22:30)
[2023-04-16 10:38] LABS: Basophils % (A) 0 %; Eosinophils # (A) 0.1 k/uL (0-0.7); Eosinophils % (A) 1 %; HCT 30.8 % (34.0-46.0); HGB 10.5 gm/dL (11.4-16.0); Lymphocytes # (A) 1.6 k/uL (1.0-4.8); Lymphocytes % (A) 14 %; MCH 30.2 pg (25.0-35.0); Mean Platelet Volume 8.8; Monocytes # (A) 0.4 k/uL (0-1.0); Monocytes % (A) 3 %; Neutrophils % (A) 80 %; Platelet Count 266 k/uL (150-450); RBC 3.46 m/uL (3.80-5.40); RDW 13.9 % (11.5-15.5); WBC 11.2 k/uL (3.8-10.6)
--- NOTE | 2023-04-16 11:04 | P.HPOB ---
History of Present Illness H&P Date: 04/16/23 Chief Complaint: Contractions, questionable rupture membranes This is a 23-year-old female 2 para 1 with an estimated date of confinement of 05/12/2023, estimated gestational age of 36-3/7 weeks, who presents to labor and delivery with complaints of questionable rupture membranes prior to coming in. She urinated but then felt like she was still urinating after. She did not notice any large gush of fluid. Contractions have become stronger since she has arrived to triage. course has been complicated by some tachycardia early on in the . She was originally referred to cardiology but then her PCP held off on referral because her symptoms improved. She was also started on Zoloft due to anxiety symptoms. labs: Hemoglobin-12.7 Blood [id number] Rubella-immune RPR-nonreactive HIV-nonreactive Hepatitis C antibody-negative Random glucose-83 Hepatitis B surface antigen-negative Ultrasound showed a low-lying placenta at 19 weeks One hour Glucola-104 RhoGAM was given at 32 weeks Group B streptococcus-negative Obstetrical history: . History of 1 vaginal delivery at 38 weeks without complication. Gynecologic history: No history of sexual transmitted diseases Social history: She is . 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 Review of Systems Constitutional: Denies chills, Denies fever Eyes: denies blurred vision, denies pain Ears, nose, mouth and throat: Denies headache, Denies sore throat Cardiovascular: Denies chest pain, Denies shortness of breath Respiratory: Denies cough Gastrointestinal: Reports abdominal pain (Contractions) Genitourinary: Reports pelvic pain, Reports Musculoskeletal: Denies myalgias Integumentary: Denies pruritus, Denies rash Neurological: Denies numbness, Denies weakness Psychiatric: Reports anxiety, Reports depression Past Medical History Past Medical History: No Reported History Additional Past Medical History / Comment(s): hypoglycemia History of Any Multi-Drug Resistant Organisms: None Reported Past Surgical History: Adenoidectomy, Tonsillectomy Additional Past Surgical History / Comment(s): shoulder Past Anesthesia/Blood Transfusion Reactions: No Reported Reaction Past Psychological History: ADD/ADHD Smoking Status: Former smoker Past Alcohol Use History: None Reported Past Drug Use History: None Reported - Past Family History Mother Family Medical History: Cancer, Hypertension Additional Family Medical History / Comment(s): breast CA Medications and Allergies Home Medications Medication Instructions Recorded Confirmed Type Pnv No.95/Ferrous Fum/Folic AC 1 tab PO DAILY 09/07/20 09/10/20 History [ Multivitamin Tablet] Allergies Allergy/AdvReac Type Severity Reaction Status Date / Time No Known Allergies Allergy Verified 04/16/23 08:01 Exam Osteopathic Statement: *. No significant issues noted on an osteopathic structural exam other than those noted in the History and Physical/Consult. Vital Signs Temp Pulse Resp BP Pulse Ox 04/16/23 10:44 98.3 F 125 H 16 130/70 04/16/23 10:37 98.3 F 125 H 16 130/70 99 Intake and Output 04/15/23 04/16/23 04/16/23 22:59 06:59 14:59 Other: Weight 75.296 kg HEENT: Within normal limits Heart: Regular rate and rhythm Lungs: Clear to auscultation bilaterally Abdomen: Cervix: Amnisure was initially negative. She did make cervical change in triage from 4-5 over a couple hour period time with regular contractions every 2 minutes. Cervix is currently 5 cm/60%/-2 station with bulging bag. Artificial rupture membranes is carried out with clear fluid noted. heart tones: 150s with good variability and accelerations, occasional variable deceleration Contractions: Every 2-3 minutes Extremities: Negative Homans. Results Result Diagrams: 04/16/23 09:25 Abnormal Lab Results - Last 24 Hours (Table) 04/16/23 Range/Units 09:25 WBC 11.2 H (3.8-10.6) k/uL RBC 3.46 L (3.80-5.40) m/uL Hgb 10.5 L (11.4-16.0) gm/dL Hct 30.8 L (34.0-46.0) % Neutrophils # 9.0 H (1.3-7.7) k/uL Assessment and Plan (1) 36 weeks gestation of Current Visit: Yes Status: Acute Code(s): Z3A.36 - 36 WEEKS GESTATION OF SNOMED Code(s): 75496991 (2) labor in third trimester with delivery Current Visit: Yes Status: Acute Code(s): O60.14X0 - LABOR THIRD TRI W DELIVERY THIRD TRI, UNSP SNOMED Code(s): 10632482600856791 Plan: Admission for early active labor. Epidural anesthesia if desired. Expectant management. Patient is aware the baby may need to go to nursery for further observation after delivery.
[2023-04-16 14:48] LABS: Glucose,Whole Blood 87 mg/dL (70-110)
[2023-04-16] MEDS ORDERED: diphenhydrAMINE 50 MG/ML 1 ML VIAL IVP PRN ×2 (22:25)
[2023-04-16] MEDS ORDERED: ZOLPIDEM 5 MG TAB PO PRN (22:25)
[2023-04-16] MEDS ORDERED: LANOLIN CREAM 5 GM TUBE TOPICAL PRN (22:25)
[2023-04-16] MEDS ORDERED: Rhogam IMMUNE GLOBULIN 1,500 UNIT/1 ML IM ONE (22:25)
[2023-04-16] MEDS ORDERED: SIMETHICONE 80 MG CHEWABLE PO PRN (22:25)
[2023-04-16] MEDS ORDERED: BENZOCAINE/MENTHOL SPRAY 1 GM/SPRAY AEROSOL TOPICAL PRN (22:25)
[2023-04-16] MEDS ORDERED: diphenhydrAMINE 50 MG CAP PO PRN (22:25)
[2023-04-16] MEDS ORDERED: HYDROCORTISONE 2.5% RECTAL CREAM 30 GM TUBE RECTAL PRN (22:25)
[2023-04-16] MEDS ORDERED: diphenhydrAMINE 25 MG CAP PO PRN (22:25)
--- NOTE | 2023-04-16 22:28 | P.PROBDLV ---
Vaginal Delivery Note - . Vaginal Delivery Note: 23-year-old presents at 36 weeks and 3 days complaining of contractions. She thought her water had broken as well but amnio sure was negative. She was lucio every few minutes. heart tones 140 with moderate variability and reactive. Her cervix changed from 4 cm to 5-1/2 cm dilated, 70% effaced, and -2 station. Amniotomy was performed at 10:54 AM and clear fluid was noted. The patient progressed very slowly throughout the day and was completely dilated at 2155. She pushed, delivered a viable male over intact perineum under epidural anesthesia at 2211. Head delivered OA, anterior shoulder delivered gentle downward guidance followed by posterior shoulder and rest of body. Nose and mouth bulb suctioned, cord clamped and cut, placed on mother's abdomen. Apgars 8, 9, weight 6 pounds 14.6 ounces. Placenta delivered spontane ously, intact with three-vessel cord at 2213. Vagina, cervix, and perineum were inspected. First-degree midline laceration was repaired with 3-0 Vicryl. Estimated blood loss 100 mL. Mother and baby in stable condition.
[2023-04-16] MEDS: IBUPROFEN 600 MG TAB PO PRN (23:55)
[2023-04-17] MEDS: ACETAMINOPHEN TAB 325 MG TAB PO PRN ×3 (02:22→20:26)
[2023-04-17] MEDS: LACTATED RINGERS 1,000 ML IV SCH ×5 (03:46→14:05)
[2023-04-17] MEDS: IBUPROFEN 600 MG TAB PO PRN ×2 (06:00→15:16)
[2023-04-17 06:27] LABS: Basophils % (A) 0 %; Eosinophils # (A) 0.1 k/uL (0-0.7); Eosinophils % (A) 1 %; HCT 28.9 % (34.0-46.0); HGB 9.7 gm/dL (11.4-16.0); Lymphocytes # (A) 1.6 k/uL (1.0-4.8); Lymphocytes % (A) 12 %; MCHC 33.6 g/dL (31.0-37.0); MCV 89.3 fL (80.0-100.0); Mean Platelet Volume 8.5; Monocytes # (A) 0.7 k/uL (0-1.0); Monocytes % (A) 5 %; Neutrophils # (A) 11.1 k/uL (1.3-7.7); Neutrophils % (A) 81 %; Platelet Count 251 k/uL (150-450); RBC 3.23 m/uL (3.80-5.40); RDW 13.9 % (11.5-15.5); WBC 13.8 k/uL (3.8-10.6)
--- NOTE | 2023-04-17 07:50 | P.PNOBGVD ---
Subjective - Subjective Principal diagnosis: Status post vaginal delivery day #1 Interval history: Patient is doing well. She is working at breast-feeding. She is currently pumping and feeding with a syringe. Lochia is decreasing. Her pain is fairly well controlled. She is requesting some compression stockings for comfort. Patient reports: Reports appetite normal, Reports voiding normally, Reports pain well controlled, Reports ambulating normally Meredith: doing well Objective - Latest Vital Signs Latest vital signs: Vital Signs Temp Pulse Resp BP Pulse Ox 04/17/23 04:00 98.2 F 104 H 16 107/75 04/17/23 00:20 98.6 F 102 H 15 114/67 96 04/16/23 23:50 98.6 F 97 16 96 04/16/23 23:20 98.6 F 100 15 114/72 04/16/23 23:05 98.6 F 90 15 115/74 97 04/16/23 22:50 100 16 119/70 97 04/16/23 22:35 98.6 F 91 16 127/69 97 04/16/23 22:20 98.3 F 107 H 16 126/68 04/16/23 10:44 98.3 F 125 H 16 130/70 04/16/23 10:37 98.3 F 125 H 16 130/70 99 Intake and Output 04/16/23 04/17/23 04/17/23 22:59 06:59 14:59 Intake Total 8.1 Output Total 100 1245 Balance -91.9 -1245 Intake: Intake, IV Titration 8.1 Amount Oxytocin 30 Units/500 ml 8.1 Ns 30 unit In Saline 1 500ml.bag @ Per Protocol IV .Q0M [facility] Rx#:[id number] Output: Urine 900 Estimated Blood Loss 100 Output, Quantitative 345 Blood Loss Other: # Voids 2 - Exam Extremities: Present: normal. Absent: tenderness Abdomen: Present: normal appearance, soft. Absent: distention, tenderness Uterus: Present: normal, firm. Absent: tenderness - Labs Labs: Abnormal Lab Results - Last 24 Hours (Table) 04/16/23 04/17/23 Range/Units 09:25 06:04 WBC 11.2 H 13.8 H (3.8-10.6) k/uL RBC 3.46 L 3.23 L (3.80-5.40) m/uL Hgb 10.5 L 9.7 L (11.4-16.0) gm/dL Hct 30.8 L 28.9 L (34.0-46.0) % Neutrophils # 9.0 H 11.1 H (1.3-7.7) k/uL Assessment and Plan Assessment: Status post vaginal delivery day #1 (1) 36 weeks gestation of Current Visit: Yes Status: Acute Code(s): Z3A.36 - 36 WEEKS GESTATION OF SNOMED Code(s): 68620431 (2) labor in third trimester with delivery Current Visit: Yes Status: Acute Code(s): O60.14X0 - LABOR THIRD TRI W DELIVERY THIRD TRI, UNSP SNOMED Code(s): 99877818337810882 Plan: Continue with care. Anticipate discharge home tomorrow.
--- NOTE | 2023-04-17 07:56 | P.MSEPDOC ---
Presenting Problems - Arrival Data Date of Arrival on Unit: 04/16/23 Time of Arrival on Unit: 07:22 Mode of Transport: Ambulatory - Complaint OB-Reason for Admission/Chief Complaint: Rule Out PROM, Pain Comment: contx Medical History - Information : 2 Para: 1 Term: 1 : 0 Abortions: Spontaneous or Elective: 0 Number of Living Children: 1 - Gestational Age Gestational Age by RYAN (wks/days): 36 Weeks and 2 Days Review of Systems - Review of Systems Constitutional: No problems Breast: No problems ENT: No problems Cardiovascular: No problems Respiratory: No problems Gastrointestinal: No problems Genitourinary: No problems Musculoskeletal: No problems Neurological: No problems Skin: No problems Vital Signs - Temperature Temperature: 98.2 F Temperature Source: Oral - Pulse Right Sitting Brachial Pulse Rate: 104 Pulse Assessment Method: Automatic Cuff - Respirations Respiratory Rate: 16 Oxygen Delivery Method: Room Air - Blood Pressure Right Arm Sitting Blood Pressure: 107/75 Blood Pressure Mean: 85 Blood Pressure Source: Automatic Cuff Medical Screen Scoring - Cervical Exam Dilation (cm): 4 Effacement (%): 60 Station: -2 Membranes: Intact - Uterine Contractions Frequency From (mins): 2 Frequency To (mins): 3 Duration From (seconds): 50 Duration To (seconds): 60 Intensity: Moderate Resting: Soft to palpation - Assessment - Baby A Baseline FHR: 160 Heart Rate - NICHD Category: Category II (Indeterminate) NST: Non-reactive Physician Notification - Physician Notified Physician Notified Date: 04/16/23 Physician Notified Time: 08:00 Physician: Loretta Chen Order Received: Yes Maternal Triage Index - Maternal Triage Index Presenting for scheduled procedure w/no complaint: No - Stat/Priority 1 Stat Priority 1: No - Urgent/Priority 2 Urgent Priority 2: No - Prompt/Priority 3 Prompt Priority 3: Yes Criteria Met for Priority 3: leaking fluid, 36 2/7, contx Disposition - Disposition OB Disposition: Admit Discharge Date: 04/16/23 Discharge Time: 10:20 I agree with the RN Medical Screening Exam: Yes Case reviewed; plan agreed upon as documented in EMR&OBIX.: Yes Diagnosis: LABOR THIRD TRI W DELIVERY THIRD TRI, UNSP
[2023-04-17] MEDS: SENNOSIDES-DOCUSATE SODIUM 1 EACH TAB PO SCH ×2 (10:07→15:21)
[2023-04-18] MEDS: IBUPROFEN 600 MG TAB PO PRN ×2 (00:20→09:27)
[2023-04-18] MEDS: ACETAMINOPHEN TAB 325 MG TAB PO PRN (05:03)
[2023-04-18] MEDS: SENNOSIDES-DOCUSATE SODIUM 1 EACH TAB PO SCH (09:28)
[2023-04-18 10:04] VITALS: BP 124/74; PULSE 99; RESP 15; TEMP 97.4
--- NOTE | 2023-04-18 10:56 | P.DS ---
Providers Date of admission: 04/16/23 10:14 Expected date of discharge: 04/18/23 Attending physician: Loretta Chen Primary care physician: Stated None - Discharge Diagnosis(es) (1) 36 weeks gestation of Current Visit: Yes Status: Acute (2) labor in third trimester with delivery Current Visit: Yes Status: Acute Hospital Course: This is a 23-year-old female 2 para 1 at 36-2/7 weeks who presented with complaints of contractions and possible spontaneous rupture membranes. Upon arrival she was found not to be ruptured but she was in active labor and did make cervical change on admission. She delivered vaginally a viable male on 04/16/2023 with scores of 8 at 1 minute and 9 at 5 minutes and infant weight of 6 pounds 14.6 ounces. Her course was essentially uncomplicated. Lochia was decreasing. Pain has been fairly well-controlled. Vital signs are stable. She is breast-feeding. Abdomen is soft with fundus firm and nontender. Impression is status post vaginal delivery day #2. Plan is to discharge home today. Routine instructions are given. She is advised to follow up in the office in 6 weeks for a check. She is advised to call the office if she has any further questions or c oncerns prior to her appointment time. She will be given a prescription for ibuprofen. She has a breast pump at home. Procedures: Oxytocin augmentation of labor Spontaneous vaginal delivery of a viable male infant on 04/16/2023 Patient Condition at Discharge: Stable Plan - Discharge Summary New Discharge Prescriptions: New Ibuprofen [Motrin] 600 mg PO Q6HR PRN #60 tab PRN Reason: Mild Pain (Scale 1 To 3) Continue Pnv No.95/Ferrous Fum/Folic AC [ Multivitamin Tablet] 1 tab PO DAILY Discharge Medication List Pnv No.95/Ferrous Fum/Folic AC [ Multivitamin Tablet] 1 tab PO DAILY 09/07/20 [History] Ibuprofen [Motrin] 600 mg PO Q6HR PRN #60 tab 04/18/23 [Rx] Follow up Appointment(s)/Referral(s): Loretta Chen DO [Doctor of Osteopathic Medicine] - 05/25/23 11:30 am Activity/Diet/Wound Care/Special Instructions: Instructions 1. Do not begin any exercise program for 3 weeks. 2. Do not resume sexual relations for 3 weeks or longer if uncomfortable. 3. You may take tub baths or showers at any time. 4. You may use tampons if desired after 3 weeks. 5. Keep the area of episiotomy (stitches) clean and dry. 6. If you are not nursing, wear a good fitting, supportive bra during the day and limit fluid intake for at least 1 week to prevent breast engorgement. 7. Call the office, [phone], within the next week to make appointment for your 6 week checkup if it has not already been made. 8. Report any of the following occurrences to the doctor promptly: a. Heavy, excessive bleeding b. Chills, fever c. Burning or frequency of urination d. Pain or redness and breasts if nursing e. Increasing pain or swelling in episiotomy (stitches). In addition to the above instructions, the following additional should be followed: 1. No heavy lifting or straining (exercising) until after 6 week checkup. 2. Keep abdominal incision clean and dry: You may wear a dressing if more comfortable. 3. Make office appointment for 10 days after going home or as instructed by her doctor. Discharge Disposition: HOME SELF-CARE
== END 2023-04-18 15:30 | disposition home or self-care (01) | DRG 807 ==
LOC: FBPOP 07:18 → 4FBP 10:14
PROVIDERS: ADMIT Obstetrics & Gynecology; ATTEND Obstetrics & Gynecology
PROC: 0HQ9XZZ Repair Perineum Skin, External Approach (ICD-10-PCS; principal; 2023-04-16)
PROC: 10907ZC Drainage of Amniotic Fluid, Therapeutic from Products of Conception, Via Natural or Artificial Opening (ICD-10-PCS; principal; 2023-04-16)
PROC: 10E0XZZ Delivery of Products of Conception, External Approach (ICD-10-PCS; principal; 2023-04-16)
DX: O60.14X0 Preterm labor third trimester with preterm delivery third trimester, not applicable or unspecified (principal); Z37.0 Single live birth; O70.0 First degree perineal laceration during delivery; O99.344 Other mental disorders complicating childbirth; F90.9 Attention-deficit hyperactivity disorder, unspecified type; Z3A.36 36 weeks gestation of pregnancy; Z87.891 Personal history of nicotine dependence
CPT/HCPCS: 59025; 84112; 85025; 86850; 86870; 86880; 86900; 86901; 99213